=== PATIENT | female | born 1955 | race Caucasian/White ===

== ENCOUNTER → 2017-12-19 | Outpatient (CLI) | payer OTHER | LOC: MC.RAD 13:56 | DX: Z12.31 Encounter for screening mammogram for malignant neoplasm of breast (principal); N63.11 Unspecified lump in the right breast, upper outer quadrant; N63.20 Unspecified lump in the left breast, unspecified quadrant ==

== ENCOUNTER → 2018-01-07 | Outpatient (CLI) | payer OTHER | LOC: MC.RAD 13:27 | DX: R92.2 Inconclusive mammogram (principal); R92.1 Mammographic calcification found on diagnostic imaging of breast ==

== ENCOUNTER → 2018-01-09 | Outpatient (CLI) | payer OTHER | LOC: MHCPAIN 08:08 | DX: G89.29 Other chronic pain (principal); M47.817 Spondylosis without myelopathy or radiculopathy, lumbosacral region; M96.1 Postlaminectomy syndrome, not elsewhere classified; M54.81 Occipital neuralgia; M50.90 Cervical disc disorder, unspecified, unspecified cervical region; M54.12 Radiculopathy, cervical region; R51 Headache; M48.02 Spinal stenosis, cervical region | CPT/HCPCS: G0463 ==

== ENCOUNTER 2018-02-19 15:30 | Outpatient (RCR) | payer OTHER | END 2018-03-13 08:09 | disposition home or self-care (01) | LOC: WSPT 15:30 | DX: M54.12 Radiculopathy, cervical region (principal); M50.30 Other cervical disc degeneration, unspecified cervical region; M47.817 Spondylosis without myelopathy or radiculopathy, lumbosacral region; M51.36 Other intervertebral disc degeneration, lumbar region; M96.1 Postlaminectomy syndrome, not elsewhere classified; Z98.890 Other specified postprocedural states | CPT/HCPCS: G0283-GP ==

== ENCOUNTER 2023-12-15 09:52 | Day surgery (SDC) | payer BC ==
[~2023-12-15] VITALS: Ht 172.7 cm; Wt 84.2 kg
[2023-12-15] VITALS (10 sets, daily range): BP systolic 126–142; BP diastolic 54–66; PULSE 64–80; TEMP 97.3
[~2023-12-15 09:52] MED LIST: LR 1,000 ML IV SCH; NORCO 325 MG-51 TAB PO
[2023-12-15] MEDS ORDERED: Ondansetron 4 MG/2 ML VIAL IV ONE (10:45)
[2023-12-15] MEDS ORDERED: SYNTHROID0.112 MG/T PO (10:58)
[2023-12-15] MEDS ORDERED: CRESTOR5 MG PO (10:58)
[2023-12-15] MEDS ORDERED: BENICAR 20MG TA20 MG PO (10:59)
[2023-12-15] MEDS ORDERED: ULTRAM 50MG TAB50 MG PO (10:59)
[2023-12-15] MEDS ORDERED: Indocyanine Green 12.5 MG in Water For Injection,Sterile 2.5 ML IV ONE (11:00)
[2023-12-15] MEDS ORDERED: PROTONIX 40MG T40 MG PO (11:00)
--- NOTE | 2023-12-15 11:20 | NUR ---
Pt arrived with self for procedure, ride to arrive upon call; VSS and WNL for procedure, RR even and unlabored, pt was naseous, ok'd from anesthesia to admin zofran with IV placement; reviewed meds/pharm/allergies/history; reviewed and signed consents x2; IV placed to RH and preop medications admin'd.
[2023-12-15] MEDS ORDERED: HYDROmorphone 1 MG/1 ML SYRINGE [PACU/SDC ONLY] IV PRN (11:45)
[2023-12-15] MEDS ORDERED: fentaNYL 50 MCG/ML 1 ML SYRINGE/VIAL [PACU/SDC ONLY] IV PRN (11:45)
[2023-12-15] MEDS ORDERED: Ondansetron 4 MG/2 ML VIAL IV PRN ×2 (11:45→14:45)
[2023-12-15] MEDS ORDERED: Ondansetron 4 MG/2 ML VIAL ONE (12:05)
[2023-12-15] MEDS ORDERED: fentaNYL 50 MCG/ML 5 ML VIAL ONE (12:05)
[2023-12-15] MEDS ORDERED: Lidocaine PF 2% (20 MG/ML) 5 ML VIAL ONE (12:05)
[2023-12-15] MEDS ORDERED: Ketorolac 30 MG/ML VIAL ONE (12:05)
[2023-12-15] MEDS ORDERED: Rocuronium 50 MG/5 ML Multi-Dose VIAL ONE (12:05)
[2023-12-15] MEDS ORDERED: NORCO 325 MG-51 TAB PO (13:02)
[2023-12-15] MEDS ORDERED: MOTRIN 600600 MG/TAB PO (13:02)
[2023-12-15] MEDS ORDERED: NS 10 ML VIAL ICA ONE (13:45)
[2023-12-15] MEDS ORDERED: Iohexol 350 - 100 ML VIAL BILE DUCT ONE (13:45)
[2023-12-15] MEDS ORDERED: Topical Skin Adhesive 1 EACH (1 ML) TOP ONE (13:45)
[2023-12-15] MEDS ORDERED: Ibuprofen 600 MG TAB PO PRN (14:45)
[2023-12-15] MEDS ORDERED: Morphine 4 MG/ML VIAL IV PRN (14:45)
--- NOTE | 2023-12-15 15:38 | NUR ---
PATIENT RETURNED TO ROOM 2 VIA CART, ALERT AND ORIENTED X3. STATES ABDOMINAL PAIN IS TOLERABLE, RATING 2/10. DENIES INTERVENTIONS. STATES SHE FEELS NAUSEOUS. SEE EMAR FOR MEDICATION GIVEN AT 1543. BREATHING REGULAR AND UNLABORED ON ROOM AIR. LUNG SOUNDS CLEAR BILATERAL. SKIN WARM AND DRY. RIGHT HAND IV IN PLACE. BILATERAL RADIAL PULSES STRONG AND REGULAR. NURSE HANDOFF COMPLETED IN ROOM WITH INSPECTION OF SURGICAL SITES. 5 ABDOMINAL INCISIONS WITH VISIBLE SKIN GLUE CLOSURE. ALL 5 SURGICAL INCISION SITES CLEAN AND DRY WITH SKIN GLUE INTACT. SEE CHART FOR VITAL SIGNS. PATIENT REQUESTED SPRITE TO DRINK. DRINK TOLERATED WELL. CALL LIGHT IN REACH.
--- NOTE | 2023-12-15 15:55 | NUR ---
1555: PATIENT DRANK SPRITE AND REQUESTED WATER AND SALTINE CRACKERS. SHE REPORTS SHE STILL FEELS NAUSEOUS AND IS WANTING TO TRY FOOD.
--- NOTE | 2023-12-15 16:53 | NUR ---
1650: PT COMPLAINING OF NAUSEA. SHE STATES THE ZOFRAN ISN'T HELPING AND HAS REQUESTED DROPERIDOL. PT HAS HAD SALTINES AND SPRITE. THIS NURSE SPOKE WITH REGARDING NAUSEA COMPLAINT AND PRIOR MEDICATIONS ADMINISTERED. SEE ORDERS FOR MEDICATION ORDERED.
[2023-12-15] MEDS ORDERED: droPERidol 2.5 MG/ML 2 ML VIAL IV ONE (16:55)
--- NOTE | 2023-12-15 17:54 | NUR ---
PATIENT REPORTED THAT SHE HAD AMBULATED TO THE RESTROOM EARLIER DURING HER RECOVERY AND VOIDED. 1730: PATIENT REPORTED NAUSEA HAD RESOLVED AND THAT SHE WAS FEELING "MUCH BETTER". PATIENT STATES HER PAIN IS 3/10 TO HER ABDOMEN AND REQUESTS MEDICATION. 1733: DISCUSSED PAIN MANAGEMENT OPTIONS WITH PATIENT. SEE EMAR FOR MEDICATION GIVEN. 1745: PATIENT WALKED IN HALLWAY WITH STEADY GAIT. 1750: PATIENTS PAIN IS DESCRIBED TOLERABLE AND NAUSEA HAS RESOLVED. ALL 5 ABDOMINAL INCISIONS CLEAN AND DRY WITH SKIN GLUE INTACT. IV REMOVED. GAUZE AND COBAN PLACED OVER SITE. 1800: DISCHARGE TEACHING COMPLETED WITH PRINTED EDUCATION AND INSTRUCTIONS SENT HOME WITH PATIENT. PATIENT INSTRUCTED TO CALL OFFICE AND SCHEDULE FOLLOW UP APPOINTMENT. PATIENT VERBALIZED UNDERSTANDING. 1802: PATIENT STATED SHE WAS READY TO GO HOME AND WAS DISCHARGED WITH [facility].
== END 2023-12-15 18:02 | disposition home or self-care (01) ==
LOC: SDCO 09:52
DX: K80.10 Calculus of gallbladder with chronic cholecystitis without obstruction (principal)
CPT/HCPCS: J0690; J1170; J1790; J1885; J2405; J2704; J3010; J7120; Q9967